=== PATIENT | male | born 1990 | race Caucasian/White ===

== ENCOUNTER 2017-12-05 22:02 | Emergency (ER) | payer BC ==
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
[2017-12-05 22:30] VITALS: BP 134/90
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
[2017-12-05] MEDS ORDERED: VORT20TA PO (22:45)
== END 2017-12-05 22:56 | disposition home or self-care (01) ==
LOC: ER 22:10
DX: S20.211A Contusion of right front wall of thorax, initial encounter (principal)
CPT/HCPCS: 71046; 99283